=== PATIENT | male | born 1990 | race Caucasian/White ===

== ENCOUNTER 2019-11-13 22:45 | Emergency (ER) | payer MEDICAID ==
[~2019-11-13] VITALS: Ht 177.8 cm; Wt 68.2 kg
[2019-11-14 00:32] VITALS: BP 124/83
== END 2019-11-14 00:34 | disposition home or self-care (01) ==
LOC: ER 22:45
DX: M79.673 Pain in unspecified foot (principal); R47.81 Slurred speech; F20.9 Schizophrenia, unspecified; F12.90 Cannabis use, unspecified, uncomplicated; F15.90 Other stimulant use, unspecified, uncomplicated; Z72.89 Other problems related to lifestyle; Z60.2 Problems related to living alone
CPT/HCPCS: 99281

== ENCOUNTER 2022-08-01 00:41 | Emergency (ER) | payer MEDICAID ==
[~2022-08-01] VITALS: Ht 177.8 cm; Wt 54.8 kg
[2022-08-01 02:09] VITALS: BP 155/95
== END 2022-08-01 02:11 | disposition home or self-care (01) ==
LOC: ER 00:41
DX: Z00.00 Encounter for general adult medical examination without abnormal findings (principal); F12.90 Cannabis use, unspecified, uncomplicated; F15.90 Other stimulant use, unspecified, uncomplicated; F17.200 Nicotine dependence, unspecified, uncomplicated; Z72.89 Other problems related to lifestyle; Z60.2 Problems related to living alone
CPT/HCPCS: 99281

== ENCOUNTER 2023-03-08 01:45 | Emergency (ER) | payer MEDICAID ==
[~2023-03-08] VITALS: Ht 177.8 cm; Wt 60.5 kg
[2023-03-08 02:20] VITALS: BP 143/84; PULSE 106; RESP 18; TEMP 96.7; O2SAT 98
--- NOTE | 2023-03-08 06:26 | NUR ---
NOT IN LOBBY FOR DAY SHIFT. CALLED [phone] AT [phone]
== END 2023-03-08 06:28 | disposition left against medical advice (07) ==
LOC: ER 01:45
DX: R22.31 Localized swelling, mass and lump, right upper limb (principal); Z53.21 Procedure and treatment not carried out due to patient leaving prior to being seen by health care provider
CPT/HCPCS: 99281

== ENCOUNTER 2024-08-12 05:55 | Emergency (ER) | payer MEDICAID ==
[~2024-08-12] VITALS: Ht 175.3 cm; Wt 68.2 kg
[2024-08-12 06:04] VITALS: BP 134/72; PULSE 104; RESP 18; TEMP 98; O2SAT 99
== END 2024-08-12 08:59 | disposition home or self-care (01) ==
LOC: ER 05:56
DX: B88.8 Other specified infestations (principal); F20.9 Schizophrenia, unspecified; F12.90 Cannabis use, unspecified, uncomplicated; F15.90 Other stimulant use, unspecified, uncomplicated
CPT/HCPCS: 99281

== ENCOUNTER 2024-08-18 20:51 | Emergency (ER) | payer MEDICAID ==
[~2024-08-18] VITALS: Ht 172.7 cm; Wt 52.3 kg
[2024-08-18 20:59] VITALS: TEMP 98.2
[2024-08-18 22:16] VITALS: BP 140/89; PULSE 98; RESP 18; O2SAT 98
[2024-08-18] MEDS: Permethrin Cream 60gm TP ONE (22:17)
== END 2024-08-18 22:18 | disposition home or self-care (01) ==
LOC: ER 20:52
DX: G25.81 Restless legs syndrome (principal); F20.9 Schizophrenia, unspecified; F12.90 Cannabis use, unspecified, uncomplicated; F15.90 Other stimulant use, unspecified, uncomplicated
CPT/HCPCS: 99282

== ENCOUNTER 2024-10-12 22:24 | Emergency (ER) | payer MEDICAID ==
[~2024-10-12] VITALS: Ht 177.8 cm; Wt 61.6 kg
[2024-10-12 22:42] VITALS: BP 159/105; PULSE 93; RESP 16; TEMP 98.3; O2SAT 99
[2024-10-12] MEDS ORDERED: SULF1TAB49 PO (23:36)
[2024-10-12] MEDS ORDERED: PERM60CR27 TOP (23:36)
--- NOTE | 2024-10-12 23:37 | Physician Documentation ---
History of Present Illness ~ Chief Complaint: Bite-insect Stated Complaint: RASH Time Seen by MD: 23:21 HPI This is a 34-year-old gentleman who comes in for evaluation of rash have bilateral lower extremities that persists despite being treated for scabies versus bed bugs two weeks ago. No particular palliating or aggravating factors. Did not attempt to treat his symptoms. Similar to the bed bag/scabies event. Denies any somatic complaints. Tetanus within 5 years?: No () Medication Reconciliation Allergies: Coded Allergies: No Known Allergies (Unverified , 08/12/24) Past Medical History Past Medical History: Schizophrenia Past Surgical History: no surgical history Alcohol Use: Occasionally Drug Use: marijuana, methamphetamine Lives with: Alone Occupation: disabled Review of Systems ROS 10 point review of systems was performed and unless noted above in HPI is negative for acute process/complaint. Physical Exam Vital Signs: Temperature: 98.3, Source: Temporal, Heart Rate: 93, Respiratory Rate: 16, BP: 159/105, Pulse Oximetry: 99, Weight: 61.600 Oxygen Flow Rate: 0 Physical Exam Physical examination: GENERAL: Awake, alert, oriented, GCS 15, no apparent distress, non-toxic appearing, answers questions, follows commands appropriately. HEENT: Atraumatic, normocephalic, pupils equal, extraocular muscles intact Active gross movements, sclerae anicteric, mucus membranes moist, no stridor. NECK: Midline, no JVD CARDIOVASCULAR: Good skin perfusion without evidence of pallor, mottling. PULMONARY: Nonlabored, symmetric chest rise, no audible wheezing, no accessory muscle use, no respiratory distress, speaking in full sentences. GASTROINTESTINAL: Not distended. NEUROLOGIC: Lucid with normal mental status. Normal facial symmetry. Moves all extremities symmetrically and with purpose. No truncal ataxia. Speech is fluid without evidence of dysarthria or aphasia, no focal deficits appreciated. EXTREMITIES: Acute deformities Skin: warm, dry, multiple serpentine lesions to bilateral upper and lower extremities, several areas of erythema and calor on bilateral lower extremities PSYCHIATRIC: Normal affect, normal insight, normal concentration. Focused exam: [] Progress Results/Orders Results/Orders Vital Signs 10/12/24 22:42 Temp 98.3 Pulse 93 Resp 16 B/P (MAP) 159/105 Pulse Ox 99 O2 Flow Rate 0 Medical Decision Making Findings Facility Status: ED Holds, RME process The plan was discussed with the patient, who demonstrates clear understanding of the plan and is in agreement with the plan unless otherwise noted in the chart. All questions have been answered, all concerns were addressed unless otherwise documented. I was available throughout their ED stay for frequent reassessment and questions. Differential Diagnoses (considered and possible or likely): [Bedbug this bites, scabies, cellulitis, superimposed secondary to scratching the bites of the insect] ??Differential Diagnoses (considered and unlikely, not requiring evaluation currently): [No evidence of abscess, unlikely to represent necrotizing infection] MDM Data Please see [facility] for the following: Independent Historians and external Records Review. Historian: [Patient] Independent Historians: ?[Record review] Medication Management: [Reviewed medication list] Social History and determinants: [Reviewed] Please see the body of the note for the following: Any independent interpretations of ECG, imaging studies. All vitals signs/haemodynamics, ordered tests were independently reviewed and interpreted by myself. Nursing triage complaint and vitals reviewed, additional nursing notes were reviewed as available and I agree unless otherwise noted or documented in contradiction in the chart Vital Signs: Independently reviewed Labs: Independently interpreted Imaging: Independently interpreted Old Medical Records: Independently reviewed, see [facility] for relevant summary and information Additionally notably showing: [Hemodynamically stable] Tests considered but not ordered include: [Hematologic workup and imaging has been considered but does not appear to be necessary given clinical nature of diagnosis] Social Determinants of Health Impact: Patient was evaluated in [facility], [facility] [place] to healthcare due to below par ratio of patient to medical providers. [] Comorbid Conditions Impacting Present Evaluation and Care/Treatment: [Homelessness] Management Discussions with other Healthcare Providers: [None] Treatment and Disposition Medication Management (Given or considered): []. See EMR for details Consideration for Hospitalization/Escalation/Deescalation of Care: Admission for observation has been considered, [however the patient is able to tolerate p.o., their symptoms are controlled, they are able to rely on oral medications, and their chief complaint/diagnosis can be managed on outpatient basis.] ?ED Course:?[No clinical deterioration] ?Shared decision making:?[Patient is hemodynamically stable for discharge home with follow with their primary care provider. [ ] Specific and cautious return precautions provided and discussed with full understanding. Any incidental findings were also discussed and follow up recommendations given. [] All questions answered. Patient/family were able to verbalize back return precautions. Patient/family agree to plan. Copies of imaging and laboratory studies were provided.] Code status:?FULL Please see the full Electronic Medical Record for full details of nursing documentation, medications list, other records of complete past medical history and conditions, vital signs, laboratory studies, and any radiologic study interpretations by radiologists. Portions of this note were completed using [employer] dictation software and as a result there may exist minor errors in spelling. I have reviewed elements of past family and social history and agree as included in note. Departure Disposition: HOME / SELF CARE / HOMELESS Impression: Primary Impression: Insect bites Additional Impression: Cellulitis Condition: Improved Discharge Instructions: Cellulitis, Adult, Insect Bite, Adult, [id number] Referrals: NO PRIMARY CARE PROVIDER (PCP) Prescriptions Sulfamethoxazole/Trimethoprim (Bactrim Ds Tablet) 800 Mg-160 Mg Tablet 1 TAB PO Q12H for 7 Days, #14 TAB Prov: ART ESPINO DO 10/12/24 Permethrin 5% Cream* (Elimite 5% Cream*) 60 Gm Cream.gm. 1 APPLIC TOP ONCE, #60 GM massage into skin from head to soles of feet one time, leave on for 8-14 hours then remove by thorough washing Prov: ART ESPINO DO 10/12/24 Education Educated: Patient Educated regarding: diagnosis, treatment, need for follow up Signature Scribe Signature: No scribe Attestation: This note accurately reflects clinical decisions, work performed by myself, DO KENZIE Donato NICHOLAS M DO Oct 12, 2024 23:37
== END 2024-10-13 01:59 | disposition home or self-care (01) ==
LOC: ER 22:25
DX: S81.852A Open bite, left lower leg, initial encounter (principal); S81.851A Open bite, right lower leg, initial encounter; L03.116 Cellulitis of left lower limb; L03.115 Cellulitis of right lower limb; F20.9 Schizophrenia, unspecified; W57.XXXA Bitten or stung by nonvenomous insect and other nonvenomous arthropods, initial encounter; Y93.89 Activity, other specified; Y92.89 Other specified places as the place of occurrence of the external cause; Y99.8 Other external cause status
CPT/HCPCS: 99283